=== PATIENT | female | born 1995 | race Hispanic/Latino ===

== ENCOUNTER 2019-08-02 12:12 | Observation (INO) | payer OTHER ==
[~2019-08-02] VITALS: Ht 154.9 cm; Wt 80.3 kg
[2019-08-02] MEDS ORDERED: MORPHINE SULFATE 2 MG/ML SYR 1ML IV STA (12:34)
[2019-08-02] MEDS ORDERED: ONDANSETRON HCL INJ 2MG/ML 2ML 2 MG/ML VIAL IV STA (12:34)
[2019-08-02] MEDS ORDERED: SODIUM CHLORIDE 0.9% 1000ML 1,000 ML IV STA (12:34)
[2019-08-02] MEDS ORDERED: MORPHINE SULFATE INJ 4 MG/ML INJ 1ML ONE (12:48)
[2019-08-02] MEDS ORDERED: SODIUM CHLORIDE 0.9% 1000ML 1,000 ML ONE ×2 (12:48→14:58)
[2019-08-02] MEDS ORDERED: KETOROLAC TROMETHAMINE 30 MG/ML VIAL IV STA (12:55)
[2019-08-02] MEDS ORDERED: KETOROLAC TROMETHAMINE 30 MG/ML VIAL ONE (12:57)
--- NOTE | 2019-08-02 14:05 | Diagnostic Imaging Report ---
EXAM: Right upper quadrant abdominal ultrasound INDICATION: Right upper quadrant pain COMPARISON: CT abdomen and pelvis of the same day TECHNIQUE: Transverse and longitudinal images of the right upper quadrant abdomen were obtained FINDINGS: Liver: Size: 13.1 cm in the right midclavicular line, normal Appearance: Normal echogenicity, smooth contour Mass: No focal masses Gallbladder: Sludge and stones in the gallbladder. Minimal pericholecystic fluid. Positive sonographic Ambrocio's sign. Bile Ducts: Intrahepatic Ducts: No dilatation Extrahepatic Ducts: Common bile duct measures 5 mm Pancreas: Visualized portions of the pancreatic head, neck and proximal body are normal. Kidney: The right kidney measures 9.8 cm without evidence of hydronephrosis or stone. Vessels: Aorta: Visualized portions are normal Inferior Vena Cava: Visualized portions are normal Main Portal Vein: 1.2 cm, normal size with hepatopetal flow. Free Fluid: No ascites or pleural effusion IMPRESSION: Cholelithiasis and findings suggestive of acute cholecystitis. Signed by: Emily Arciniega MD on 08/02/2019 2:02 PM
--- NOTE | 2019-08-02 14:09 | Diagnostic Imaging Report ---
EXAM: CT Abdomen and Pelvis WITHOUT intravenous contrast INDICATION: Abdominal pain COMPARISON: Right upper quadrant ultrasound of the same day. TECHNIQUE: Abdomen and pelvis were scanned utilizing a multidetector helical scanner from the lung base to the pubic symphysis without administration of IV contrast. Coronal and sagittal reformations were obtained. IV CONTRAST: None ORAL CONTRAST: None COMPLICATIONS: None RADIATION DOSE: Total DLP: 725 mGy*cm Dose modulation, iterative reconstruction, and/or weight based adjustment of the mA/kV was utilized to reduce the radiation dose to as low as reasonably achievable. FINDINGS: LOWER THORAX: Normal. HEPATOBILIARY: No focal liver lesion. Sludge and gallstones seen on ultrasound are not well visualized on CT. SPLEEN: No splenomegaly. PANCREAS: No focal masses or ductal dilatation. ADRENALS: No adrenal nodules. KIDNEYS/URETERS: No hydronephrosis, stones, or solid mass lesions. PELVIC ORGANS/BLADDER: Unremarkable. PERITONEUM / RETROPERITONEUM: No free air or fluid. LYMPH NODES: No lymphadenopathy. VESSELS: Unremarkable. GI TRACT: Mild diverticulosis without CT evidence of diverticulitis. No abnormal bowel thickening. No bowel obstruction. Normal appendix. BONES AND SOFT TISSUES: No acute osseous injury. No suspicious lytic or blastic lesions. IMPRESSION: Sludge and gallstones seen on ultrasound are not well visualized by CT. No acute CT findings in the abdomen or pelvis. Signed by: Emily Arciniega MD on 08/02/2019 2:06 PM
[2019-08-02] MEDS ORDERED: PIPER-TAZ 3.375 GM 50 ML IV ONE (14:30)
[2019-08-02] MEDS ORDERED: ONDANSETRON HCL INJ 2MG/ML 2ML 2 MG/ML VIAL IV PRN (14:30)
[2019-08-02] MEDS: MORPHINE SULFATE 2 MG/ML SYR 1ML IV PRN ×2 (15:05→21:45)
[2019-08-02] MEDS: SODIUM CHLORIDE 0.9% 1000ML 1,000 ML IV SCH (15:05)
[2019-08-02] MEDS ORDERED: LEVOFLOXACIN 500MG/D5W 100ML 100 ML IV ONE (15:45)
--- NOTE | 2019-08-02 16:03 | NUR ---
Called [facility] to transport pt to room 112
--- NOTE | 2019-08-02 16:14 | NUR ---
Report to AGUSTIN Gayle
--- NOTE | 2019-08-02 17:25 | NUR ---
RECD PT FROM [facility]-VIA STRETCHER,AAOX3,IV INFUSING TO RT AC 20 G.HOB ELEVATED,CALL WANG IN REACH
--- NOTE | 2019-08-02 17:55 | NUR ---
DR BEVERLY HERE SPOKE WITH PATIENT
[2019-08-02 18:06] VITALS: BP 117/63
[2019-08-02 20:00] VITALS: BP 108/50
[2019-08-02 20:03] VITALS: BP 117/63
[2019-08-02] MEDS ORDERED: PIPER-TAZ 3.375 GM 50 ML IV SCH (22:00)
--- NOTE | 2019-08-02 22:26 | History and Physical ---
PRIMARY CARE PHYSICIAN: Dr. Celio Calhoun at [facility]. CHIEF COMPLAINT: Right upper quadrant abdominal pain radiating to the back. HISTORY OF PRESENT ILLNESS: This is a 23-year-old female with no past medical history, presented to the ER with complaints of right upper quadrant abdominal pain that radiates to her back. She reports had similar symptoms a few weeks ago, but since she has a new baby two months do not want to come to the ER. Abdominal pain shortly thereafter. This time the pain started at 10 o'clock in the morning after eating her breakfast. She reports the pain was more severe and had one time nausea, vomiting. Reports the pain is sharp and radiating to her back, so she presented to the ER for further evaluation. She denies any fever, chills, chest pain, shortness of breath, cough, dysuria, hematemesis, or diarrhea. In the freestanding ER, imaging showed acute cholecystitis. She was given IV fluids, and pain medication, which has resolved her pain, but still present with palpitation. She is admitted for further management. PAST MEDICAL HISTORY: Chronic anemia. PAST SURGICAL HISTORY: Reports D and C. FAMILY MEDICAL HISTORY: Reports grandmother and mother had gallbladder disease. SOCIAL HISTORY: She denies any tobacco, alcohol, or illicit drug use. She is , has one child. ALLERGIES: PENICILLIN AND AMOXICILLIN. REVIEW OF SYSTEMS: Twelve system reviewed and negative except as reported in HPI. PHYSICAL EXAMINATION: VITAL SIGNS: Temperature is 98.3, pulse is 76, respirations 16, blood pressure 119/66, pulse ox is 97% on room air. GENERAL: No acute distress. HEENT: Normocephalic, atraumatic. NECK: Supple. LUNGS: Clear to auscultation. CARDIOVASCULAR: Regular rate and rhythm. S1, S2 heard. GI: Soft, right upper quadrant tenderness with palpation. Active bowel sounds. NEUROLOGIC: Alert, awake, and oriented x3. MUSCULOSKELETAL: Moves all extremities. No edema. SKIN: Dry and intact. PSYCH: Calm. LABORATORY DATA: WBC 7.5, hemoglobin 11.1, hematocrit 34.6. Sodium 144, potassium 3.5, creatinine 0.4. LFTs within normal limits. IMAGING: Abdominal ultrasound, cholelithiasis and findings suggestive of acute cholecystitis. CT abdomen and pelvis without contrast shows sludge and gallstones seen on the ultrasound are not well visualized by CT. No acute CT findings in the abdomen or pelvis. IMPRESSION: 1. There is abdominal pain due to acute cholecystitis. Abdominal ultrasound noted. Start on clear liquids, IV fluids, pain management as needed. Dr. Michelle consulted for laparoscopic cholecystectomy. 2. Chronic anemia. 3. Obesity. 4. Deep vein thrombosis prophylaxis. SCDs for surgery tomorrow. Dictated by IMELDA Cobos Saad Beatty MD MY/MODL /[id number]
[2019-08-03] VITALS (7 sets, daily range): BP systolic 98–134; BP diastolic 56–78
[2019-08-03] MEDS: SODIUM CHLORIDE 0.9% 1000ML 1,000 ML IV SCH ×3 (03:13→16:33)
[2019-08-03 05:17] LABS: BASOPHILS % 0.3 % (0.0-1.0); EOSINOPHILS # (AUTO) 0.1 (0.0-0.4); EOSINOPHILS % 1.2 % (0.0-6.0); HEMATOCRIT 32.9 % (34.2-44.1); LYMPHOCYTES # (AUTO) 1.8 (1.0-3.2); LYMPHOCYTES % 27.6 % (18.0-39.1); MEAN CORPUSCULAR HEMOGLOBIN 26.2 pg (28-32); MEAN CORPUSCULAR HGB CONC 30.4 g/dL (31-35); MEAN CORPUSCULAR VOLUME 86.4 fL (81-99); MONOCYTES # (AUTO) 0.5 (0.2-0.8); MONOCYTES % 6.8 % (4.4-11.3); NEUTROPHILS # (AUTO) 4.2 (2.1-6.9); NEUTROPHILS % 63.8 % (38.7-80.0); PLATELET COUNT 319 x10e3/uL (140-360); RED BLOOD COUNT 3.81 x10e6/uL (3.6-5.1); RED CELL DISTRIBUTION WIDTH 15.3 % (11.7-14.4)
[2019-08-03 05:44] LABS: ALANINE AMINOTRANSFERASE 184 IU/L (0-55); ALBUMIN/GLOBULIN RATIO 0.9 (0.8-2.0); ALKALINE PHOSPHATASE 130 IU/L (40-150); ANION GAP 9.7 mmol/L (8-16); BLOOD UREA NITROGEN 9 mg/dL (7-26); BUN/CREATININE RATIO 16 (6-25); CALCIUM 8.1 mg/dL (8.4-10.2); CARBON DIOXIDE 21 mmol/L (22-29); CHLORIDE 113 mmol/L (98-107); CREATININE, SERUM 0.58 mg/dL (0.57-1.11); EST GLOMERULAR FILTRATION RATE > 60 ML/MIN (60-); GLUCOSE 90 mg/dL (74-118); POTASSIUM 3.7 mmol/L (3.5-5.1); SODIUM 140 mmol/L (136-145)
[2019-08-03] MEDS ORDERED: BUPIVACAINE 0.25%/EPI 30ML SDV INJ ONE ×2 (10:03→11:45)
--- NOTE | 2019-08-03 10:43 | NUR ---
patient to OR at this time.
[2019-08-03] MEDS ORDERED: SUCCINYLCHOLINE CHLORIDE 20 MG/ML 10ML VIAL ONE (11:44)
[2019-08-03] MEDS ORDERED: ROCURONIUM BROMIDE 10 MG/ML 5ML VIAL IV ONE (11:44)
[2019-08-03] MEDS ORDERED: ACETAMINOPHEN 1000 MG/100 ML IV ONE (11:44)
[2019-08-03] MEDS ORDERED: ONDANSETRON HCL INJ 2MG/ML 2ML 2 MG/ML VIAL ONE (11:44)
[2019-08-03] MEDS ORDERED: NEOSTIGMINE 1 MG/ML 10ML VIAL ONE (11:44)
[2019-08-03] MEDS ORDERED: SEVOFLURANE INHAL SOLN 250 ML PEN BTL ONE (11:44)
[2019-08-03] MEDS ORDERED: KETOROLAC TROMETHAMINE 30 MG/ML VIAL ONE (11:44)
[2019-08-03] MEDS ORDERED: GLYCOPYRROLATE INJ 0.2 MG/ML VIAL ONE (11:44)
[2019-08-03] MEDS ORDERED: PROPOFOL IV EMULSION 10 MG/ML 20 ML VIAL ONE (11:44)
[2019-08-03] MEDS ORDERED: LIDOCAINE HCL 2% LOCAL INJ 5 ML SDV VIAL INJ ONE (11:44)
[2019-08-03] MEDS ORDERED: DEXAMETHASONE SOD PHOS INJ 4 MG/ML VIAL ONE (11:44)
[2019-08-03] MEDS ORDERED: ACETAMINOPHEN 1000 MG/100 ML IV PRN (12:15)
[2019-08-03] MEDS ORDERED: HYDROMORPHONE 1MG/1ML INJ IV PRN (12:15)
--- NOTE | 2019-08-03 12:30 | NUR ---
patient back from OR. very lethargic but vitals stable. will monitor closely.
[2019-08-03] MEDS ORDERED: FENTANYL CITRATE/PF 100MCG/2 ML INJ ONE ×2 (12:38→15:06)
--- NOTE | 2019-08-03 13:53 | NUR ---
patient more awake now but still having anesthesia side effects. will answer simple questions and make eye contact but minimally verbal. family at BS.
[2019-08-03] MEDS ORDERED: MIDAZOLAM HCL 2 MG/2 ML VIAL ONE (15:06)
[2019-08-03] MEDS: LEVOFLOXACIN 500MG/D5W 100ML 100 ML IV SCH (16:34)
[2019-08-03] MEDS: HYDROCODONE/APAP 7.5MG-325MG 1 EA TAB PO PRN (16:47)
--- NOTE | 2019-08-03 18:15 | Operative Report ---
DATE OF PROCEDURE: 08/03/2019 SURGEON: Joel Michelle MD PREOPERATIVE DIAGNOSES: Cholecystitis and cholelithiasis. POSTOPERATIVE DIAGNOSES: Cholecystitis and cholelithiasis. OPERATION PERFORMED: Laparoscopic cholecystectomy. ANESTHESIA: General endotracheal. COMPLICATIONS: None. ESTIMATED BLOOD LOSS: Minimal. DESCRIPTION OF PROCEDURE: With the patient lying in bed in the supine position under good general endotracheal anesthesia, the abdomen was prepped with Betadine solution and draped in the usual manner. A Veress needle was introduced into the umbilicus and pneumoperitoneum was established without any difficulty. An 11 mm trocar was placed into the umbilicus and a 10 mm video laparoscope was placed into the intraabdominal cavity. Under direct vision, three 5 mm trocars were placed in the right subcostal region. Video laparoscopy at this point revealed a gallbladder, that was tensely distended and edematous consistent with acute cholecystitis. The rest of the abdominal exploration was within normal limits. The adhesions to the lower part of the gallbladder were then taken down. The peritoneum overlying the neck of the gallbladder was then opened and the cystic duct was identified. The cystic duct was followed to its junction with the common duct. There was a stone in the middle of the cystic duct causing obstruction. The cystic duct was then circumferentially dissected away from the common duct, doubly clipped and divided. The cystic artery was similarly doubly clipped and divided, the gallbladder was then slowly and carefully taken off the liver bed using the cautery scissors and perfect hemostasis was ascertained. The gallbladder was placed in a pouch and removed through the umbilicus without any difficulty. Video laparoscopy was then again carried out, the liver bed was found to be perfectly dry. All of the excess fluid was aspirated. The pneumoperitoneum was evacuated and all the trocars were removed under direct vision. The midline fascia at the umbilicus was then closed with a [id number] of 0 Vicryl. All layers were infiltrated on the way out with solution of 0.25% Marcaine. Subcutaneous tissue was approximated with 3-0 Vicryl and the skin was closed with subcuticular 5-0 Vicryl. Benzoin, Steri-Strips, and Band-Aids were applied. The sponge, lap, and needle counts were correct. The patient tolerated the procedure well and returned to the recovery room in stable condition. MD ALIYAH Guevara/KRISTI /[id number]
--- NOTE | 2019-08-03 19:11 | Progress Note ---
DATE: 08/03/2019 CHIEF COMPLAINT: Pain radiating to back. SUBJECTIVE: The patient was seen in the room lethargic, status post lap elina. at the bedside. Unable to as she was lethargic. PHYSICAL EXAMINATION: VITAL SIGNS: Temperature 98.5, pulse is 58, respirations 16, blood pressure 134/78, pulse ox is 98% on room air. GENERAL: In no acute distress, lethargic. HEENT: Normocephalic, atraumatic. NECK: Supple. LUNGS: Clear. CARDIOVASCULAR: Regular rate and rhythm. S1, S2 heard. GI: Soft, nontender to palpation LABORATORY DATA: BUN is 9, creatinine 0.58. Estimated GFR greater than 60. ALT 184. test negative. IMPRESSION: 1. Acute cholecystitis, status post laparoscopic cholecystectomy by Dr. Michelle. Continue pain management, IV fluids, and clear liquids. 2. Elevated LFTs due to cholecystitis. . 3. Chronic anemia. Hemoglobin is stable . We will continue to monitor. 4. Obesity. 5. . PLAN: To continue current treatment, started on clear liquids tomorrow. Dictated by IMELDA Cobos Saad Beatty MD MY/MODL /[id number]
[2019-08-04] VITALS (7 sets, daily range): BP systolic 103–127; BP diastolic 59–70
[2019-08-04] MEDS: HYDROCODONE/APAP 7.5MG-325MG 1 EA TAB PO PRN ×4 (01:38→21:03)
[2019-08-04] MEDS: SODIUM CHLORIDE 0.9% 1000ML 1,000 ML IV SCH ×3 (02:21→19:00)
[2019-08-04 05:29] LABS: BASOPHILS % 0.2 % (0.0-1.0); EOSINOPHILS # (AUTO) 0.1 (0.0-0.4); EOSINOPHILS % 0.6 % (0.0-6.0); HEMOGLOBIN 9.8 g/dL (12.0-16.0); LYMPHOCYTES # (AUTO) 2.3 (1.0-3.2); LYMPHOCYTES % 23.6 % (18.0-39.1); MEAN CORPUSCULAR HEMOGLOBIN 27.2 pg (28-32); MEAN CORPUSCULAR HGB CONC 31.6 g/dL (31-35); MEAN CORPUSCULAR VOLUME 86.1 fL (81-99); MONOCYTES # (AUTO) 0.5 (0.2-0.8); MONOCYTES % 5.4 % (4.4-11.3); NEUTROPHILS # (AUTO) 6.9 (2.1-6.9); NEUTROPHILS % 69.8 % (38.7-80.0); PLATELET COUNT 333 x10e3/uL (140-360); RED CELL DISTRIBUTION WIDTH 15.8 % (11.7-14.4)
[2019-08-04 05:51] LABS: ALANINE AMINOTRANSFERASE 336 IU/L (0-55); ALBUMIN 3.1 g/dL (3.5-5.0); ALBUMIN/GLOBULIN RATIO 0.9 (0.8-2.0); ALKALINE PHOSPHATASE 256 IU/L (40-150); ANION GAP 10.6 mmol/L (8-16); BLOOD UREA NITROGEN 7 mg/dL (7-26); BUN/CREATININE RATIO 11 (6-25); CALCIUM 8.6 mg/dL (8.4-10.2); CARBON DIOXIDE 22 mmol/L (22-29); CHLORIDE 108 mmol/L (98-107); CREATININE, SERUM 0.62 mg/dL (0.57-1.11); EST GLOMERULAR FILTRATION RATE > 60 ML/MIN (60-); GLUCOSE 94 mg/dL (74-118); POTASSIUM 3.6 mmol/L (3.5-5.1); SODIUM 137 mmol/L (136-145)
[2019-08-04] MEDS: LEVOFLOXACIN 500MG/D5W 100ML 100 ML IV SCH (16:41)
--- NOTE | 2019-08-04 19:20 | NUR ---
BEDSIDE SHIFT REPORT RECEIVED FROM DAY RN. PT ALERT AND ORIENTED X3. RESPIRATIONS ARE EVEN AND UNLABORED. TOLERATING PO WELL. TROCHAR DRESSING SITES DRY AND INTACT. PT DENIES PAIN. PT SL LT AC 20G SITE HEALTHY. CALL LIGHT WITHIN REACH. BED LOCKED AND IN LOW POSITION. PT VOIDING WITHOUT DIFFICULTY.
--- NOTE | 2019-08-04 20:26 | Progress Note ---
DATE: 08/04/2019 CHIEF COMPLAINT: Right upper quadrant abdominal pain, radiating to her back. SUBJECTIVE: The patient is seen sitting up in her bed, with no acute distress. She denies any chest pain, shortness of breath, fever, chills, nausea, or vomiting. PHYSICAL EXAMINATION: VITAL SIGNS: Temperature is 98.1, pulse is 66, respirations 16, blood pressure 111/62, pulse ox 98% on room air. GENERAL: No acute distress. HEENT: Normocephalic, atraumatic. NECK: Supple. LUNGS: Clear to auscultation. CARDIOVASCULAR: Regular rate and rhythm. S1, S2 heard. GI: Soft and tender with palpation. Surgical site intact. MUSCULOSKELETAL: Moves all extremities. No edema. PSYCH: Calm. LABORATORY DATA: WBC 9.84, hemoglobin 9.8, hematocrit 31.0, platelet 333. Sodium 137, potassium 3.6, CO2 22, BUN is 7, creatinine 0.62, total bilirubin is 3.8, AST is 260, ALT is 336, alkaline phosphate 256. IMPRESSION: 1. Acute cholecystitis, status post laparoscopic cholecystectomy by Dr. Michelle. Continue pain management as needed, tolerating clear liquids and will advance as tolerated. 2. Elevated liver function tests and total bilirubin. We will continue to trend. If continues to rise, may order MRCP for retained stone. 3. Chronic anemia. Hemoglobin is 9.8. We will continue to monitor. 4. Obesity. 5. Deep vein thrombosis prophylaxis. SCDs due to recent surgery. PLAN: Continue current treatment, IV fluids, repeat hepatic panel in the morning. Dictated by IMELDA Cobos Saad Beatty MD MY/MODL /[id number]
[2019-08-05] VITALS: BP 117/70
[2019-08-05] MEDS: HYDROCODONE/APAP 7.5MG-325MG 1 EA TAB PO PRN (03:56)
[2019-08-05 04:00] VITALS: BP 120/62
[2019-08-05] MEDS: SODIUM CHLORIDE 0.9% 1000ML 1,000 ML IV SCH (05:00)
[2019-08-05 05:37] LABS: BASOPHILS # (AUTO) 0.1 (0.0-0.1); BASOPHILS % 0.5 % (0.0-1.0); EOSINOPHILS # (AUTO) 0.2 (0.0-0.4); EOSINOPHILS % 1.6 % (0.0-6.0); HEMATOCRIT 33.6 % (34.2-44.1); HEMOGLOBIN 9.8 g/dL (12.0-16.0); LYMPHOCYTES # (AUTO) 1.6 (1.0-3.2); MEAN CORPUSCULAR HGB CONC 29.2 g/dL (31-35); MEAN CORPUSCULAR VOLUME 89.1 fL (81-99); MONOCYTES # (AUTO) 0.4 (0.2-0.8); MONOCYTES % 4.2 % (4.4-11.3); NEUTROPHILS # (AUTO) 7.3 (2.1-6.9); NEUTROPHILS % 76.4 % (38.7-80.0); PLATELET COUNT 348 x10e3/uL (140-360); RED BLOOD COUNT 3.77 x10e6/uL (3.6-5.1); RED CELL DISTRIBUTION WIDTH 15.8 % (11.7-14.4)
[2019-08-05 06:32] LABS: BILIRUBIN,DIRECT 1.1 mg/dL (0.0-0.5)
[2019-08-05 06:57] LABS: ALANINE AMINOTRANSFERASE 238 IU/L (0-55); ALBUMIN 3.1 g/dL (3.5-5.0); ALBUMIN/GLOBULIN RATIO 0.9 (0.8-2.0); ALKALINE PHOSPHATASE 293 IU/L (40-150); ANION GAP 12.9 mmol/L (8-16); BLOOD UREA NITROGEN 8 mg/dL (7-26); BUN/CREATININE RATIO 13 (6-25); CALCIUM 8.8 mg/dL (8.4-10.2); CARBON DIOXIDE 20 mmol/L (22-29); CHLORIDE 107 mmol/L (98-107); CREATININE, SERUM 0.63 mg/dL (0.57-1.11); EST GLOMERULAR FILTRATION RATE > 60 ML/MIN (60-); GLUCOSE 76 mg/dL (74-118); POTASSIUM 3.9 mmol/L (3.5-5.1); SODIUM 136 mmol/L (136-145)
[2019-08-05 07:55] VITALS: BP 129/62
[2019-08-05 08:00] VITALS: BP 129/62
--- NOTE | 2019-08-05 10:14 | NUR ---
DC 3 obs. Mees inpatient. Requesting inpatient order. Awaiting reply
[2019-08-05 11:39] VITALS: BP 118/72
--- NOTE | 2019-08-05 12:01 | NUR ---
DISCHARGING HOME TODAY
--- NOTE | 2019-08-05 18:30 | Discharge Summary ---
PRIMARY CARE PHYSICIAN: Dr. Celio Calhoun at [facility]. FINAL DISCHARGE DIAGNOSES: 1. Acute cholecystitis, status post laparoscopic cholecystectomy. 2. Elevated liver function tests and total bilirubin. 3. Chronic anemia. 4. Obesity. CONSULTANTS: Dr. Michelle with Surgery. PROCEDURES: She underwent lap cholecystectomy. HISTORY: Per HPI. HOSPITAL COURSE: This is a 23-year-old female, who presented to the ER with complaints of right upper quadrant abdominal pain radiating to her back. Imaging showed acute cholecystitis. Dr. Michelle with surgical team was consulted, she underwent a lap cholecystectomy. She was monitored overnight. Repeat blood work showed elevated LFTs and total bilirubin. She was monitored one more night and repeat blood work showed trend. Abdominal pain was improving, tolerating diet. Today, she is afebrile, vital signs stable, LFTs trending down, we will discharge home to follow up with Dr. Michelle and PCP for repeat LFTs in 1 week. PHYSICAL EXAMINATION: VITAL SIGNS: Temperature 98.5, pulse is 67, respirations 16, blood pressure 118/72, pulse ox is 99% on room air. GENERAL: No acute distress. HEENT: Normocephalic, atraumatic. NECK: Supple. LUNGS: Clear to auscultation. CARDIOVASCULAR: Regular rate and rhythm. GI: Soft and mild tenderness in the right upper quadrant area. MUSCULOSKELETAL: Moves all extremities. No edema. PSYCH: Calm. CONDITION AT DISCHARGE: Improved and stable. DC medications. Please see medication reconciliation list. FOLLOWUP: Follow up with PCP and Dr. Michelle in one week. TIME SPENT: Total discharge time is 33 minutes. Dictated by IMELDA Cobos Saad Beatty MD MY/MODL /[id number] cc: Celio Calhoun MD
== END 2019-08-05 12:59 | disposition home or self-care (01) ==
LOC: FSED 12:12 → INTOOBSV 14:27 → ERHOLD 14:27 → MED/SURG2 17:05 → MED/SURG 17:07
PROVIDERS: ADMIT Internal Medicine; ATTEND Internal Medicine
DX: K80.00 Calculus of gallbladder with acute cholecystitis without obstruction (principal); D64.9 Anemia, unspecified; E66.9 Obesity, unspecified; K82.8 Other specified diseases of gallbladder; Z88.0 Allergy status to penicillin; Z68.33 Body mass index [BMI] 33.0-33.9, adult
CPT/HCPCS: 36415 ×3; 47562; 74176; 76705; 80053 ×4; 80076 ×2; 81003; 81025 ×2; 85025 ×4; 87635; 88304; 96374; 96375; 99284; C1766; G0378 ×4; J0131; J0330; J1100; J1885 ×2; J1956 ×3; J2001; J2250; J2270 ×2; J2405 ×3; J2704; J2710; J3010; J7030 ×3